=== PATIENT | male | born 1945 | race Caucasian/White ===

== ENCOUNTER 2016-10-14 09:43 | Emergency (ER) | payer MEDICARE, OTHER ==
[~2016-10-14] VITALS: Ht 149.9 cm; Wt 39.5 kg
--- NOTE | 2016-10-14 12:51 | RAD ---
EXAM: CT head without contrast. HISTORY: Fall with head injury. TECHNIQUE: Computed tomography of the head was performed without intravenous contrast. COMPARISON: 08/19/2016. FINDINGS: There are limitations from motion artifact on some series. The examination remains diagnostic for the following. There is no intracranial hemorrhage. Hypoattenuation within the periventricular white matter indicates moderate chronic small vessel ischemic change. Prominence of the lateral ventricles and hemispheric sulci indicate moderate atrophy. The visualized paranasal sinuses appear clear. There are changes of bilateral cataract surgery. The temporal bones are unremarkable. The calvarium reveals no suspicious lesions. IMPRESSION: 1. No acute intracranial findings. 2. Moderate atrophy and chronic small vessel ischemic white matter change. *One or more of the following individualized dose reduction techniques were utilized for this examination: 1. Automated exposure control. 2. Adjustment of the mA and/or kV according to patient size. 3. Use of iterative reconstruction technique.
[2016-10-14 13:00] VITALS: BP 137/77
--- NOTE | 2016-10-14 13:00 | PHYS DOC ---
Past Medical History Past Medical History: Anemia, Anxiety, Hypertension, Seizure, Other Additional Past Medical Histor: MR, SEASONAL ALLERGIES, POLYPS, OCD, OMYCHROMYCHOSIS Past Surgical History: Other Additional Past Surgical Histo: eye surgery, dental surgery Alcohol Use: None Drug Use: None Adult General Chief Complaint Chief Complaint: MECHANICAL FALL HPI HPI Patient is a 71 year old male who presents with brim shaper for mechanical fall with head injury. This occurred just prior to arrival. He has a nonbleeding abrasion to his forehead, but otherwise does not complain of pain. He is nonverbal at baseline. He is mentating at his baseline per caregiver. He is ambulatory at baseline per his caregiver. Review of Systems Review of Systems Otherwise unobtainable secondary to mental status Allergies Allergies Allergies Coded Allergies Type Severity Reaction Last Updated Verified No Known Drug Allergies 08/19/13 No Physical Exam Physical Exam Constitutional: Well developed, thin, no acute distress, non-toxic appearance. [ ] HENT: Normocephalic, bilateral external ears normal, oropharynx moist, no oral exudates, nose normal. Nonbleeding abrasion to right frontal area with no palpable or visual skull abnormality [] Eyes: PERRLA, EOMI, conjunctiva normal, no discharge. [] Neck: Normal range of motion, no tenderness, supple. [] Cardiovascular:Heart rate regular rhythm [] Lungs & Thorax: Bilateral breath sounds clear to auscultation [] Abdomen: Bowel sounds normal, soft, no tenderness. [] Skin: Warm, dry, no erythema, no rash. [] Back: No tenderness, no CVA tenderness. [] Extremities: No tenderness, ROM intact, no edema. [] Neurologic: Alert, nonverbal, normal motor function, normal sensory function, no focal deficits noted. [] Psychologic: Affect normal, mood normal. [] Current Patient Data Vital Signs Vital Signs Date Time Temp Pulse Resp B/P Pulse Ox O2 Delivery O2 Flow Rate FiO2 10/14/16 13:00 74 18 137/77 99 Room Air 10/14/16 10:58 99.3 99.3 Radiology/Procedures Radiology/Procedures CT head without contrast IMPRESSION: 1. No acute intracranial findings. 2. Moderate atrophy and chronic small vessel ischemic white matter change. DICTATED and SIGNED BY: PADMINI BUNN MD DATE: 10/14/16 1231 Course & Med Decision Making Course & Med Decision Making Pertinent Labs and Imaging studies reviewed. (See chart for details) Imaging is unremarkable. He continues to have mental status at his baseline per caregiver. Return precautions given. Caregiver understands and agrees with plan. Dragon Disclaimer Dragon Disclaimer This electronic medical record was generated, in whole or in part, using a voice recognition dictation system. Departure Departure Impression: Primary Impression: Closed head injury Additional Impression: Forehead abrasion Disposition: HOME, SELF-CARE Condition: STABLE Referrals: ELLA RODRIGUEZ MD (PCP) Patient Instructions: Head Injury, Adult, [id number] Additional Instructions: Follow-up with your primary care doctor. Return for any concerns. Problem Qualifiers Primary Impression: Closed head injury Encounter type: initial encounter Qualified Code: S09.90XA - Unspecified injury of head, initial encounter Additional Impression: Forehead abrasion Encounter type: initial encounter Qualified Code: S00.81XA - Abrasion of other part of head, initial encounter Nicole HANSEN MD Oct 14, 2016 13:00
== END 2016-10-14 13:06 | disposition home or self-care (01) ==
LOC: ER 09:43
DX: S00.81XA Abrasion of other part of head, initial encounter (principal); I10 Essential (primary) hypertension; F42.9 Obsessive-compulsive disorder, unspecified; W19.XXXA Unspecified fall, initial encounter; Y93.89 Activity, other specified; Y99.8 Other external cause status; Y92.89 Other specified places as the place of occurrence of the external cause
CPT/HCPCS: 70450; 99284-25

== ENCOUNTER 2016-11-01 15:20 | Emergency (ER) | payer MEDICARE, OTHER ==
--- NOTE | 2016-11-01 16:28 | PHYS DOC ---
Past Medical History Past Medical History: Anemia, Anxiety, Hypertension, Seizure, Other Additional Past Medical Histor: MR, SEASONAL ALLERGIES, POLYPS, OCD, OMYCHROMYCHOSIS,FALLS Past Surgical History: Other Additional Past Surgical Histo: eye surgery, dental surgery Alcohol Use: None Drug Use: None Adult General Chief Complaint Chief Complaint: MECHANICAL FALL HPI HPI Patient is a 71 year old male with history of anemia hypertension anxiety and mental retardation who presents today with a caregiver status post mechanical fall earlier today. Caregiver stated patient was trying to sit down when he missed the chair and hit to stumble backwards scratching his back on the chair and landing on his buttocks. Caregiver denies patient hitting his head on the ground or having any loss of consciousness. Caregiver states patient is at his baseline mental capacity. Patient is up and ambulating with no difficulties. Review of Systems Review of Systems Constitutional: Denies fever or chills [] Eyes: Denies change in visual acuity, redness, or eye pain [] HENT: Denies nasal congestion or sore throat [] Respiratory: Denies cough or shortness of breath [] Cardiovascular: No additional information not addressed in HPI [] GI: Denies abdominal pain, nausea, vomiting, bloody stools or diarrhea [] : Denies dysuria or hematuria [] Musculoskeletal:back pain Integument: Denies rash or skin lesions [] Neurologic: Denies headache, focal weakness or sensory changes [] Endocrine: Denies polyuria or polydipsia [] Allergies Allergies Allergies Coded Allergies Type Severity Reaction Last Updated Verified No Known Drug Allergies 08/19/13 No Physical Exam Physical Exam Constitutional: Well developed, well nourished, no acute distress, non-toxic appearance. [] HENT: Normocephalic, atraumatic, bilateral external ears normal, oropharynx moist, no oral exudates, nose normal. [] Eyes: PERRLA, EOMI, conjunctiva normal, no discharge. [] Neck: Normal range of motion, no tenderness, supple, no stridor. [] Cardiovascular:Heart rate regular rhythm, no murmur [] Lungs & Thorax: Bilateral breath sounds clear to auscultation [] Abdomen: Bowel sounds normal, soft, no tenderness, no masses, no pulsatile masses. [] Skin: Warm, dry, no erythema, no rash. [] Back:slight bruising on the mid back, no tenderness, no CVA tenderness. [] Extremities: No tenderness, no cyanosis, no clubbing, ROM intact, no edema. [] Neurologic: Alert and oriented X 3, normal motor function, normal sensory function, no focal deficits noted. [] Psychologic: Affect normal, judgement normal, mood normal. [] Current Patient Data Vital Signs Vital Signs Date Time Temp Pulse Resp B/P Pulse Ox O2 Delivery O2 Flow Rate FiO2 11/01/16 15:56 98.1 82 20 125/39 95 Room Air 98.1 EKG EKG [] Radiology/Procedures Radiology/Procedures [] Course & Med Decision Making Course & Med Decision Making Pertinent Labs and Imaging studies reviewed. (See chart for details) Patient is in the ED to be evaluated after falling today. Patient has history of mental retardation and is currently at his baseline mental capacity. There was no LOC when he fell and he did not hit his head. He has abrasions on his mid back. Patient has no complaints. Patient is up and ambulating with no difficulties. Thoracic spine x-rays shows demineralization. There is an old T10 vertebral compression fracture. There is a chronic bilateral upper lobe pulmonary infiltrates. We'll put patient on Z-Shola and have them follow-up with the PCP. Lumbar x-rays are noted for demineralization, there is also moderate L3 vertebral compression fracture which appears to have progress since 2013, there' s also T12-L1 and L2 vertebral compression fractures that appear old. Patient is in no distress. He is up and ambulating. I recommended following up with the PCP as well as neurosurgeon which we provided. Provided caregiver return precautions. Discharged in stable condition. Dragon Disclaimer Dragon Disclaimer This electronic medical record was generated, in whole or in part, using a voice recognition dictation system. Departure Departure Impression: Primary Impression: Fall from standing Additional Impressions: Lumbar compression fracture DJD (degenerative joint disease), thoracic DJD (degenerative joint disease), lumbar Thoracic compression fracture Pulmonary infiltrates on CXR Disposition: HOME, SELF-CARE Condition: STABLE Referrals: ELLA RODRIGUEZ MD (PCP) Please follow-up with your own doctor next week IAN HARPER MD Follow-up with the provided neurosurgeon next week for compression fractures Patient Instructions: Back, Compression Fracture, Fall Prevention and Home Safety, Pneumonia, Adult, [id number] Additional Instructions: Patient was seen after falling. His x-rayx shows he has moderate L3 vertebral compression fractures which appear to have progressed since 2013. He also has T12-L1 and L2 vertebral compression fractures which appear to be old. He also has T10 vertebral compression fractures. They look old. He also has chronic pneumonia. We put him on antibiotics for the pneumonia. You need to follow-up with your primary care doctor as well as the neurosurgeon provided next week. Come back to the ED at any point symptoms worsen. Scripts Azithromycin (Zithromax)250 Mg Tablet1 Pkg PO UD #1 PKG Prov:ANABELLA BARKER [employer]ILD LIFE MANAGER 11/01/16 Problem Qualifiers Primary Impression: Fall from standing Encounter type: initial encounter Qualified Code: W19.XXXA - Unspecified fall, initial encounter Additional Impressions: Lumbar compression fracture Encounter type: initial encounter Fracture type: closed Qualified Code: S32.000A - Wedge compression fracture of unspecified lumbar vertebra, initial encounter for closed fracture DJD (degenerative joint disease), thoracic Spinal osteoarthritis complication: unspecified spinal osteoarthritis Qualified Code: M47.814 - Spondylosis without myelopathy or radiculopathy, thoracic region DJD (degenerative joint disease), lumbar Spinal osteoarthritis complication: unspecified spinal osteoarthritis Qualified Code: M47.816 - Spondylosis without myelopathy or radiculopathy, lumbar region Thoracic compression fracture Encounter type: initial encounter Fracture type: closed Qualified Code: S22.000A - Wedge compression fracture of unspecified thoracic vertebra, initial encounter for closed fracture ANABELLA BARKER WILD LIFE MANAGER Nov 01, 2016 16:28
--- NOTE | 2016-11-01 16:51 | RAD ---
Lumbar spine, 3 views, 11/01/2016: History: Fall, pain The bony structures are demineralized. There is a moderate thoracolumbar scoliosis. There are moderate vertebral compression deformities at T12, L1 and L3. There is mild loss of height of the L2 vertebral body. Correlation with coronal images from a previous CT abdomen study from 08/19/2013 suggests that the T12, L1 and L2 fractures are probably old. The L3 fracture has progressed with moderate sclerotic change in that vertebrae. There are scattered spurs. There are degenerative changes involving scattered facet joints. IMPRESSION: 1. Demineralization. 2. Moderate thoracolumbar scoliosis. 3. Moderate L3 vertebral compression fracture which appears to progressed since 08/19/2013 with underlying sclerotic changes. 4. T12, L1 and L2 vertebral compression fractures appear to be old. Thoracic spine, 3 views, 11/01/2016: The bony structures are demineralized. The upper thoracic vertebral bodies are poorly delineated on the lateral view due to the demineralization. There is slight loss of height of the T10 vertebral body which was present on an old lateral chest radiograph from 10/15/2009. There are mild scattered marginal spurs. There are chronic bilateral upper lobe pleural-parenchymal opacities, likely on a postinflammatory basis. IMPRESSION: 1. Demineralization with poor delineation of the upper thoracic vertebrae. 2. Minimal old T10 vertebral compression fracture. 3. Chronic bilateral upper lobe pulmonary infiltrates.
[2016-11-01] MEDS ORDERED: AZIT250T PO (17:19)
[2016-11-01 17:26] VITALS: BP 121/51
== END 2016-11-01 17:26 | disposition home or self-care (01) ==
LOC: ER 15:20
DX: S32.030A Wedge compression fracture of third lumbar vertebra, initial encounter for closed fracture (principal); S22.070A Wedge compression fracture of T9-T10 vertebra, initial encounter for closed fracture; M47.814 Spondylosis without myelopathy or radiculopathy, thoracic region; M47.816 Spondylosis without myelopathy or radiculopathy, lumbar region; R91.8 Other nonspecific abnormal finding of lung field; F42.9 Obsessive-compulsive disorder, unspecified; F79 Unspecified intellectual disabilities; I10 Essential (primary) hypertension; F41.9 Anxiety disorder, unspecified; W07.XXXA Fall from chair, initial encounter; Y93.89 Activity, other specified; Y92.89 Other specified places as the place of occurrence of the external cause; Y99.8 Other external cause status
CPT/HCPCS: 72072; 72100; 99284

== ENCOUNTER → 2016-12-18 | Outpatient (CLI) | payer MEDICARE, OTHER ==
[~2016-12-18] MED LIST: AZIT250T PO; BARIUM SULFATE 40% (APPLE) 148 GM PWD. PO ONE
--- NOTE | 2016-12-18 13:02 | RAD ---
Indication: Dysphasia. The study was performed in conjunction with speech pathology. Video fluoroscopy was performed during the swallowing of barium at multiple consistencies. Overall study is somewhat compromised due to patient being developmentally delayed. 2.7 minutes of fluoroscopy time was utilized. Cine fluoroscopy was performed. The patient ingested the honey and pureed consistency without difficulty. There was deep larger penetration during the swallowing of nectar consistency. There was also penetration and aspiration with the semisolid consistency. There was an evenutal spontaneous cough. Impression: Abnormal video swallow demonstrating aspiration and penetration, as described.
== END | disposition home or self-care (01) ==
LOC: RAD 12:16
PROVIDERS: ATTEND Family Medicine
DX: Z51.89 Encounter for other specified aftercare (principal); R13.10 Dysphagia, unspecified
CPT/HCPCS: 74230; 92611; G8996; G8997; G8998

== ENCOUNTER 2017-01-23 12:33 | Emergency (ER) | payer MEDICARE, OTHER ==
[~2017-01-23 12:33] MED LIST changes: -BARIUM SULFATE 40% (APPLE) 148 GM PWD. PO ONE
[2017-01-23 13:59] LABS: BASO % 0 % (0-3); EOS % 0 % (0-3); HEMATOCRIT 35.8 % (39.0-53.0); HEMOGLOBIN 12.3 g/dL (13.0-17.5); LYMPH # 0.7 x10^3/uL (1.0-4.8); LYMPH % 10 % (24-48); MEAN CORPUSCULAR HEMOGLOBIN 34 pg (25-35); MEAN CORPUSCULAR HGB CONC 34 g/dL (31-37); MEAN CORPUSCULAR VOLUME 99 fL (79-100); MONO % 10 % (0-9); NEUT % 80 % (31-73); PLATELET COUNT 98 x10^3/uL (140-400); RED BLOOD COUNT 3.61 x10^6/uL (4.30-5.70); RED CELL DISTRIBUTION WIDTH 13.5 % (11.5-14.5); WHITE BLOOD COUNT 6.8 x10^3/uL (4.0-11.0)
[2017-01-23 14:17] LABS: CALCIUM 9.7 mg/dL (8.5-10.1); GFR 74.1; POTASSIUM 4.2 mmol/L (3.5-5.1)
--- NOTE | 2017-01-23 14:20 | RAD ---
Portable chest, 01/23/2017: History: Shortness of breath Comparison is made to a study from 08/19/2016. The patient is rotated to the left. The heart size is normal. There are moderate ongoing reticulonodular parenchymal opacities with overlying pleural thickening in the pulmonary apices. Similar findings were present on previous studies. No new pulmonary infiltrate is seen. There is no evidence of pleural fluid. The bony structures are demineralized. There is now anterior dislocation of the left shoulder. There appears to be displaced fracture fragment arising from the lateral margin of the left humeral head. IMPRESSION: 1. Unchanged moderate bilateral upper lobe pleural-parenchymal opacities, most compatible with scarring. 2. Left shoulder fracture/dislocation, new since 08/19/2016.
[2017-01-23 14:22] LABS: ALBUMIN 3.4 g/dL (3.4-5.0); ALBUMIN/GLOBULIN RATIO 0.8 (1.0-1.7); TOTAL BILIRUBIN 0.6 mg/dL (0.2-1.0); TOTAL PROTEIN 7.8 g/dL (6.4-8.2)
--- NOTE | 2017-01-23 14:29 | RAD ---
CT of the head without contrast, 01/23/2017: History: Dizziness Comparison is made to a study from 10/14/2016. There is mild cerebellar and moderate cerebral atrophy. The ventricles are mildly prominent on a compensatory basis. There is no shift of the midline structures. There is no evidence of acute intracranial hemorrhage or mass effect. Minimal deep white matter lucencies are again noted compatible with chronic ischemic change. IMPRESSION: 1. Chronic findings as described above. 2. No acute intracranial abnormality is detected. PQRS Compliance Statement: One or more of the following individualized dose reduction techniques were utilized for this examination: 1. Automated exposure control 2. Adjustment of the mA and/or kV according to patient size 3. Use of iterative reconstruction technique
--- NOTE | 2017-01-23 14:45 | EKG ---
[facility] [address] [place] [address] Test Date: 2017-01-23 Test Time: 13:26:20 Pat Name: ACNDIDA DENT Department: Room: Gender: M Case Sealer: : 1945 Requested By: LEAH ALEMAN Order Number: [id number] Reading MD: Wilver Gil Measurements Intervals Baldwin Rate: 87 P: -161 ND: 162 QRS: 4 QRSD: 76 T: 18 QT: 354 QTc: 427 Interpretive Statements SINUS RHYTHM QRS(T) CONTOUR ABNORMALITY CANNOT RULE OUT ANTEROSEPTAL MYOCARDIAL DAMAGE RI6.01 Unconfirmed report No previous ECG available for comparison Electronically Signed On 01-27-2017 10:36:06 CDT by Wilver Gil
[2017-01-23 14:59] LABS: BILIRUBIN,URINE NEGATIVE (NEG); GLUCOSE,URINE 100 mg/dL (NEG); NITRITE,URINE POSITIVE (NEG); PROTEIN,URINE NEGATIVE (NEG-TRACE); UROBILINOGEN,URINE 0.2 mg/dL (0.2 mg/dL)
[2017-01-23 15:16] LABS: BACTERIA,URINE MANY /HPF (0-FEW)
[2017-01-23 15:17] LABS: SQUAMOUS EPITHELIAL CELL,UR OCC /LPF
[2017-01-23] MEDS ORDERED: ETOMIDATE 20 MG/10 ML VIAL. IV ONE (17:45)
--- NOTE | 2017-01-23 18:35 | ED.ADGEN ---
Past Medical History Past Medical History: Anemia, Anxiety, Hypertension, Seizure Additional Past Medical Histor: MR, SEASONAL ALLERGIES, POLYPS, OCD, OMYCHROMYCHOSIS,FALLS Past Surgical History: Other Additional Past Surgical Histo: eye surgery, dental surgery Alcohol Use: None Drug Use: None Adult General Chief Complaint Chief Complaint: DIZZY/LIGHT HEADED HPI HPI Patient is a 71 year old with history of mental retardation, seizure disorder 1 increased ataxia and agitation. Patient noted to be acting abnormally upon returning to his senior care where he resides. Patient is nonverbal. He is been no reports of falls or injuries, infectious symptoms, missed medications or new medications. Patient's alert and oriented to surroundings and responds to his name. He is able to follow basic commands. History is limited due the patient's cognitive impairment. Review of Systems Review of Systems ROS as per HPI. Current Medications Current Medications Current Medications Medications (Trade) Dose Ordered Sig/Haylie Start Time Stop Time Status Last Admin Dose Admin Ceftriaxone Sodium 1 gm/ Sodium Chloride 50 ml @ 100 mls/hr Q24H 01/24/17 17:00 Ceftriaxone Sodium 50 ml @ 100 mls/hr 1X ONCE 01/23/17 16:45 01/23/17 17:14 DC 01/23/17 16:59 100 MLS/HR Etomidate (Amidate) 20 mg 1X ONCE 01/23/17 17:45 01/23/17 17:46 DC 01/23/17 18:00 10 MG Allergies Allergies Allergies Coded Allergies Type Severity Reaction Last Updated Verified No Known Drug Allergies 01/23/17 No Physical Exam Physical Exam Constitutional: Well developed, well nourished, no acute distress, non-toxic appearance. HENT: Normocephalic, atraumatic, bilateral external ears normal, oropharynx moist, no oral exudates, nose normal. Eyes: PERRL, EOMI, conjunctiva normal. Neck: Normal range of motion, no tenderness. Cardiovascular:Heart rate regular rhythm, no murmur. Lungs & Thorax: Bilateral breath sounds clear to auscultation. Abdomen: Bowel sounds normal, soft, no tenderness. Skin: Warm, dry. Back: No tenderness. Extremities: No tenderness. Left upper extremity, shoulder deformity with weakness Neurologic: Alert and oriented, normal motor function, normal sensory function, no focal deficits noted. Psychologic: Affect normal. Current Patient Data Vital Signs Vital Signs Date Time Temp Pulse Resp B/P (MAP) Pulse Ox O2 Delivery O2 Flow Rate FiO2 01/23/17 16:58 84 27 114/74 (87) 95 Room Air 01/23/17 13:27 98.3 98.3 Lab Values Laboratory Tests Test 01/23/17 13:45 01/23/17 14:49 White Blood Count 6.8 x10^3/uL (4.0-11.0) Red Blood Count 3.61 x10^6/uL (4.30-5.70) L Hemoglobin 12.3 g/dL (13.0-17.5) L Hematocrit 35.8 % (39.0-53.0) L Mean Corpuscular Volume 99 fL (79-100) Mean Corpuscular Hemoglobin 34 pg (25-35) Mean Corpuscular Hemoglobin Concent 34 g/dL (31-37) Red Cell Distribution Width 13.5 % (11.5-14.5) Platelet Count 98 x10^3/uL (140-400) L Neutrophils (%) (Auto) 80 % (31-73) H Lymphocytes (%) (Auto) 10 % (24-48) L Monocytes (%) (Auto) 10 % (0-9) H Eosinophils (%) (Auto) 0 % (0-3) Basophils (%) (Auto) 0 % (0-3) Neutrophils # (Auto) 5.4 x10^3uL (1.8-7.7) Lymphocytes # (Auto) 0.7 x10^3/uL (1.0-4.8) L Monocytes # (Auto) 0.7 x10^3/uL (0.0-1.1) Eosinophils # (Auto) 0.0 x10^3/uL (0.0-0.7) Basophils # (Auto) 0.0 x10^3/uL (0.0-0.2) Sodium Level 139 mmol/L (136-145) Potassium Level 4.2 mmol/L (3.5-5.1) Chloride Level 103 mmol/L (98-107) Carbon Dioxide Level 31 mmol/L (21-32) Anion Gap 5 (6-14) L Blood Urea Nitrogen 23 mg/dL (8-26) Creatinine 1.0 mg/dL (0.7-1.3) Estimated GFR (Cockcroft-Gault) 74.1 BUN/Creatinine Ratio 23 (6-20) H Glucose Level 217 mg/dL (70-99) H Calcium Level 9.7 mg/dL (8.5-10.1) Total Bilirubin 0.6 mg/dL (0.2-1.0) Aspartate Amino Transferase (AST) 35 U/L (15-37) Alanine Aminotransferase (ALT) 23 U/L (16-63) Alkaline Phosphatase 103 U/L (46-116) Troponin I Quantitative < 0.017 ng/mL (0.000-0.055) Total Protein 7.8 g/dL (6.4-8.2) Albumin 3.4 g/dL (3.4-5.0) Albumin/Globulin Ratio 0.8 (1.0-1.7) L Carbamazepine (Tegretol) Level 8.6 mcg/mL (4.0-12.0) Carbamazepine Last Dose Date 01/23/17 Carbamazepine Last Dose Time 0800 Urine Color Yellow Urine Clarity Cloudy Urine pH 5.0 Urine Specific Dewitt 1.020 Urine Protein Negative mg/dL (NEG-TRACE) Urine Glucose (UA) 100 mg/dL (NEG) Urine Ketones (Stick) Negative mg/dL (NEG) Urine Blood Small (NEG) Urine Nitrite Positive (NEG) Urine Bilirubin Negative (NEG) Urine Urobilinogen Dipstick 0.2 mg/dL (0.2 mg/dL) Urine Leukocyte Esterase Small (NEG) Urine RBC 1-2 /HPF (0-2) Urine WBC 1-4 /HPF (0-4) Urine Squamous Epithelial Cells Occ /LPF Urine Bacteria Many /HPF (0-FEW) Urine Mucus Slight /LPF Laboratory Tests 01/23/17 13:45 Laboratory Tests 01/23/17 13:45 EKG EKG [EKG sinus rhythm rate 87,] Radiology/Procedures Radiology/Procedures [CT head: No acute intracranial disease. Chest x-ray: Left shoulder dislocation: No obvious acute cardiopulmonary process. Left shoulder x-ray: post reduction, successful relocation of shoulder. Course & Med Decision Making Course & Med Decision Making Pertinent Labs and Imaging studies reviewed. (See chart for details) [left shoulder was successfully reduced. I suspect the patient staggered agitation related to a nontraumatic shoulder dislocation. Patient placed in a shoulder immobilizer. He'll be discharged senior care with instructions to be closely watched overnight with instructions to follow-up with orthopedic surgery. Return precautions reviewed.] Dragon Disclaimer Dragon Disclaimer This electronic medical record was generated, in whole or in part, using a voice recognition dictation system. LEAH ALEMAN DO Jan 23, 2017 18:35
[2017-01-23 18:57] VITALS: BP 110/64
--- NOTE | 2017-01-24 08:00 | RAD ---
Left shoulder, 2 views, 01/23/2017: History: Postreduction evaluation No previous shoulder radiographs are available for comparison purposes. The bony structures are demineralized. No acute fracture or dislocation is identified. There is moderate bilateral apical scarring. IMPRESSION: 1. Demineralization. 2. No acute abnormality is detected.
== END 2017-01-23 19:09 | disposition home or self-care (01) ==
LOC: ER 12:33
DX: S43.005A Unspecified dislocation of left shoulder joint, initial encounter (principal); G40.909 Epilepsy, unspecified, not intractable, without status epilepticus; I10 Essential (primary) hypertension; F42.9 Obsessive-compulsive disorder, unspecified; F41.9 Anxiety disorder, unspecified; Z86.59 Personal history of other mental and behavioral disorders; W18.39XA Other fall on same level, initial encounter; Y93.89 Activity, other specified; Y99.8 Other external cause status; Y92.89 Other specified places as the place of occurrence of the external cause
CPT/HCPCS: 23650; 36415; 70450; 71010; 73030; 80053; 80156; 81001; 82962; 84484; 85027; 93005; 96365; 96375; 99285; J0690